=== PATIENT | male | born 1945 | race Caucasian/White ===

== ENCOUNTER 2022-09-07 07:58 | Day surgery (SDC) | payer MEDICARE, OTHER, SELFPAY ==
--- NOTE | 2022-09-06 13:01 | HO.ANESPROP2 ---
Documented by User: Judy Tesfaye NP 09/06/22 13:04 HPI - Anesthesia Eval Consult details Narrative: 76yo M for Colonoscopy Cardiac cleared Xarelto for afib/hx thalamic stroke PMFSH Past Medical History Medical History (Updated 09/06/22 @ 12:49 by Kellen Olmstead, JENA) Atrial fibrillation Colon cancer Glaucoma Hyperlipemia 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 Surgical History Surgical History (Updated 09/06/22 @ 12:49 by Kellen Olmstead RN) H/O cardiac radiofrequency ablation History of colon surgery History of tonsillectomy Hx of colonoscopy Social History Social History Patient Tobacco Use Status: Former Tobacco user Use of substances other than those prescribed or required for medical reasons: No Are you DNR?: No Advance Directives: No Advance Directives Information Provided: Yes Meds Allergies Allergy/AdvReac Type Severity Reaction Status Date / Time No Known Allergies Allergy Verified 09/07/22 10:22 [No Known Allergies*] Home Medications Medication Instructions Recorded Confirmed Last Taken Type alendronate 70 mg tablet 1 tab PO QWEEK 09/06/22 09/06/22 Unknown History atorvastatin 10 mg tablet 1 tab PO DAILY 09/06/22 09/06/22 Unknown History brinzolamide 1 % eye drp 09/06/22 Unknown History drops,suspension (Azopt) latanoprost 0.005 % eye drops 1 drp ophthalmic (eye) BEDTIME 09/06/22 09/06/22 Unknown History rivaroxaban 20 mg tablet (Xarelto) 1 tab PO DAILY 09/06/22 09/06/22 09/04/22 History Exam Exam Date and Time: September 06, 2022 1301 Narrative Narrative: ECHO 04/2022 LV poorly visualized LV size is nml LV wall thickness mildly increased LV systolic function is low nml LVEF 50-55% No obvious WMA Grade I DD with impaired LV relaxation Trace aortic regurg Assessment and Plan Assessment Anesthesia Assessment: Chart Reviewed Documented by User: Edna Moon MD 09/07/22 10:24 [facility] Past Medical History Medical History (Updated 09/06/22 @ 12:49 by Kellen Olmstead, JENA) Atrial fibrillation Colon cancer Glaucoma Hyperlipemia 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 Family History Family history of problems with anesthesia: No Surgical History Surgical History (Updated 09/06/22 @ 12:49 by Kellen Olmstead RN) H/O cardiac radiofrequency ablation History of colon surgery History of tonsillectomy Hx of colonoscopy History of Problems with Anesthesia: No Social History Social History Patient Tobacco Use Status: Former Tobacco user Use of substances other than those prescribed or required for medical reasons: No Are you DNR?: No Advance Directives: No Advance Directives Information Provided: Yes Meds Allergies Allergy/AdvReac Type Severity Reaction Status Date / Time No Known Allergies Allergy Verified 09/07/22 10:22 [No Known Allergies*] Home Medications Medication Instructions Recorded Confirmed Last Taken Type alendronate 70 mg tablet 1 tab PO QWEEK 09/06/22 09/06/22 Unknown History atorvastatin 10 mg tablet 1 tab PO DAILY 09/06/22 09/06/22 Unknown History brinzolamide 1 % eye drp 09/06/22 Unknown History drops,suspension (Azopt) latanoprost 0.005 % eye drops 1 drp ophthalmic (eye) BEDTIME 09/06/22 09/06/22 Unknown History rivaroxaban 20 mg tablet (Xarelto) 1 tab PO DAILY 09/06/22 09/06/22 09/04/22 History Exam Airway Mallampati Class: II TM Dist: >3cm Heart: afib Lungs: cta Assessment and Plan Final Anesthetic Review Family History of Problems with Anesthesia: No History of Problems with Anesthesia: No NPO: Yes ASA Class: III Final Preanesthetic Review: No Changes in Pt Med Stat, Meds/Allgs Chart Reviewed, Consent Obtained/Reviewed and Anes Risks/Benef Reviewed Patient Risk: Low Procedure Risk: Low Anesthetic Plan Anesthetic Plan: MAC: Disposition: Standard PACU
[2022-09-07 08:24] VITALS: BMI 21.5
[2022-09-07 08:44] VITALS: BP 124/80; PULSE 59; RESP 16; TEMP 36.2; O2SAT 99
[2022-09-07] MEDS: Lactated Ringers 1,000 ML 50 ML IVCONT (08:57)
[2022-09-07 10:45] VITALS: BP 98/59; PULSE 58; RESP 17; TEMP 36.6; O2SAT 99
--- NOTE | 2022-09-07 10:46 | PM.OP ---
Brief Operative Note Date of Service: 09/07/22 Pre-op diagnosis: Screening Post-op diagnosis: other (Colon polyp) Procedure: Colonoscopy to the cecum and TI with bx/removal of polyp Surgeon: Rikki Pantoja Anesthesia: MAC Was an Reset Merchandiser used for this Procedure?: No Estimated blood loss (mL): 2.0 Pathology: other (A. Ascending colon polyp) Condition: stable Disposition: PACU
[2022-09-07 11:00] VITALS: BP 108/62; PULSE 70; RESP 18; TEMP 36.8; O2SAT 100
--- NOTE | 2022-09-07 11:25 | OP_ITS ---
SURGEON: Rikki Pantoja MD INDICATIONS: The patient presents for evaluation of colorectal cancer screening in regard to his personal history of colon cancer and colon polyps. Full consent was obtained from him for this, including risks of bleeding and perforation. PREOPERATIVE DIAGNOSIS: POSTOPERATIVE DIAGNOSIS: PROCEDURE PERFORMED: Colonoscopy to cecum and terminal ileum with biopsy removal of polyp. ESTIMATED BLOOD LOSS: COMPLICATIONS: ANESTHESIA: Monitored anesthesia care. ASSISTANTS: SPECIMENS: PREOPERATIVE DIAGNOSES: Colorectal cancer screening, personal history of colon polyps, personal history of colon cancer. POSTOPERATIVE DIAGNOSES: Colorectal cancer screening, personal history of colon polyps, personal history of colon cancer, small colon polyp, diverticulosis, internal hemorrhoids. DESCRIPTION OF PROCEDURE: The patient was placed in the left lateral decubitus position. The digital rectal exam revealed no abnormalities. The Olympus video pediatric colonoscope was entered into the rectum and advanced easily to the cecum. Once in the cecum, I did identify normal-appearing cecal pouch with appendiceal orifice and a normal-appearing ileocecal valve. The terminal ileum was cannulated, appeared normal. Scope withdrawn back in the colon. The entire cecum and ileocecal valve appeared normal. Scope was slowly withdrawn assessing all mucosal surfaces carefully. Preparation was excellent. In the proximal ascending colon, there was a flat approximately 3 or 4 mm polyp, which was biopsied and completely removed with cold biopsy forceps. I did not visualize any other polyps, colitis, or angiodysplasia. There was a moderate amount of diverticulosis in the descending colon. His anastomosis was seen at 20 cm and appeared normal. I did not visualize any sign of colitis nor angiodysplasia. In the rectum, scope was retroflexed visualizing some small internal hemorrhoids, but no other pathology. The rectal mucosa appeared normal. The scope was straightened and withdrawn the patient. He tolerated the procedure well and was returned to the recovery area in stable condition. IMPRESSION: 1. Small colon polyp. 2. Diverticulosis. 3. Internal hemorrhoids. PLAN: The results of biopsy will be checked. Given these minimal findings and his age, I do not feel he will need any further screening colonoscopies in the future. He was advised to resume his Xarelto tomorrow. This has been discussed with his . MD JANELLE Harrison/AMRITA / [id number] [facility]
== END 2022-09-07 11:31 | disposition home or self-care (01) ==
PROVIDERS: PCP Family Medicine; Visit Provider Internal Medicine
PROC: 0DJD8ZZ Inspection of Lower Intestinal Tract, Via Natural or Artificial Opening Endoscopic (ICD-10-PCS; CPT 45378; principal; 2022-09-07 09:40)
DX: Z12.11 Encounter for screening for malignant neoplasm of colon (principal); Z85.038 Personal history of other malignant neoplasm of large intestine; Z86.010 Personal history of colon polyps; Z98.0 Intestinal bypass and anastomosis status; D12.2 Benign neoplasm of ascending colon; K57.30 Diverticulosis of large intestine without perforation or abscess without bleeding; K64.8 Other hemorrhoids; E78.5 Hyperlipidemia, unspecified; H40.9 Unspecified glaucoma; I48.91 Unspecified atrial fibrillation; Z79.01 Long term (current) use of anticoagulants; Z79.82 Long term (current) use of aspirin; Z86.73 Personal history of transient ischemic attack (TIA), and cerebral infarction without residual deficits; Z85.828 Personal history of other malignant neoplasm of skin; Z87.891 Personal history of nicotine dependence
CPT/HCPCS: 45380; 88305